=== PATIENT | female | born 1930 | race Hispanic/Latino ===

== ENCOUNTER 2018-04-18 20:39 | Inpatient (IN) | payer MEDICARE, BC ==
[2018-04-18 22:14] VITALS: BMI 30.4
[2018-04-18] MEDS ORDERED: oxyCODONE 10 mg Immediate Release Tab PO PRN (22:34)
--- NOTE | 2018-04-18 22:44 | CP.PCM.HP ---
History of Present Illness - History of Present Illness History of Present Illness: GENERAL SURGERY HISTORY AND PHYSICAL FOR DR. GARCIA 88yo F with PMHx of HTN, anemia, hypokalemia, COPD, hyperlipidemia, dimentia, arthritis, DVT/PE on Eliquis presents to [facility] as a transfer from [facility] for AKA with Dr. Garcia tomorrow. Pt has been wheel chair bound for several years and lives in a custodial. Most of history obtained from patient's daughter at bedside. Patient had a bilateral knee replacement in 2013. Per the daughter, the pt fell on her knees while getting a shower at the custodial and had to have several revisions of the knee replacements. (12/03/17, 12/08/17, attempt at closed reduction 02/01/18, open reduction TKA dislocation, revision TKA 02/09/18). On 04/04/18, she returned to [facility] ER with right knee wound dehiscence. On 04/06/18 she went back to the OR for wound dehiscence s/p revision of right TKR. A patellectomy was done with reconstruction of patella tendon. The wound was irrigated and debridement done. Wound was closed primarily and wound vac was applied. Pt was discharged back to custodial. On 04/14/18, she presented back to [facility] ED with right TKA wound recurrent dehiscence. Dr. Hernandez discussed with patient's daughter and son and recommended AKA due to concern that perfusion in lower extremity would not support flap coverage and multiple plastic surgery procedures. Family in agreement for AKA. Pt transferred to [facility] [place] for AKA. Previous blood cx: fungemia, pt on Fluconazole Previous wound cx: Klebsiella, pt on Vanco and Rocephin Per daughter, eliquis on hold since Tuesday or Tuesday. PMHx: HTN, anemia, hypokalemia, COPD, hyperlipidemia, dimentia, arthritis, DV T/PE on Eliquis Surgeries: hysterectomy, hernia repair by Dr. Franklin, bilateral knee replacement in 2013 Allergies: trazodone Present on Admission - Present on Admission Any Indicators Present on Admission: Yes History of DVT/PE: Yes History of Uncontrolled Diabetes: No Decubitus Ulcer Present: Yes Decubitus Ulcer Stage: I History Surgical Site Infection Following: Orthopedic Procedures Review of Systems - Review of Systems Systems not reviewed;Unavailable: Dementia Past Patient History - Infectious Disease Hx of Infectious Diseases: None - Tetanus Immunizations Tetanus Immunization: Unknown - Past Medical History & Family History Past Medical History?: Yes - Past Social History Smoking Status: Never Smoked - CARDIAC Hx Hypercholesterolemia: Yes Hx Hypertension: Yes - PULMONARY Hx Chronic Obstructive Pulmonary Disease (COPD): Yes Hx Pulmonary Embolism: Yes - NEUROLOGICAL Hx Dementia: Yes Hx Seizures: No - HEENT Hx HEENT Problems: Yes Hx Cataracts: Yes - RENAL Hx Chronic Kidney Disease: No - ENDOCRINE/METABOLIC Hx Endocrine Disorders: No - HEMATOLOGICAL/ONCOLOGICAL Hx Anemia: Yes Hx Human Immunodeficiency Virus (HIV): No - INTEGUMENTARY Hx Dermatological Problems: Yes (HX:Cellulitis of the lower extremities) - MUSCULOSKELETAL/RHEUMATOLOGICAL Hx Arthritis: Yes Hx Fractures: Yes - GASTROINTESTINAL Hx Gastrointestinal Disorders: Yes (GI bleed, herniorhapphy) Hx Gastroesophageal Reflux: Yes - GENITOURINARY/GYNECOLOGICAL Hx Sexually Transmitted Disorders: No - PSYCHIATRIC Hx Anxiety: Yes Hx Depression: Yes - ANESTHESIA Hx Anesthesia: Yes Hx Anesthesia Reactions: No Hx Malignant Hyperthermia: No Meds Allergies/Adverse Reactions: Allergies Allergy/AdvReac Type Severity Reaction Status Date / Time trazodone Allergy DIZZINESS Verified 04/14/18 20:23 Physical Exam - Constitutional Appears: Non-toxic, No Acute Distress, Chronically Ill - Head Exam Head Exam: ATRAUMATIC, NORMAL INSPECTION - Respiratory Exam Respiratory Exam: NORMAL BREATHING PATTERN. absent: Respiratory Distress - Cardiovascular Exam Cardiovascular Exam: +S1, +S2 - GI/Abdominal Exam GI & Abdominal Exam: Soft. absent: Firm, Guarding, Tenderness - Extremities Exam Additional comments: Right leg in knee immobilizer. Wound vac x2 connected via a Y Left knee with steri strips in place - Neurological Exam Neurological exam: Alert - Psychiatric Exam Psychiatric exam: Normal Affect, Normal Mood - Skin Skin Exam: Dry, Normal Color Results - Vital Signs Recent Vital Signs: Last Vital Signs Temp 98.2 F 04/18/18 20:45 Pulse 76 04/18/18 20:45 Resp 20 04/18/18 20:45 BP 181/104 H 04/18/18 20:45 Pulse Ox 96 04/18/18 20:45 Assessment & Plan - Assessment and Plan (Free Text) Assessment: 88yo F with PMHx of HTN, anemia, hypokalemia, COD, hyperlipidemia, dimentia, arthritis, DVT/PE on Eliquis with right TKA wound recurrent dehiscence. - Plan for OR tomorrow for right AKA - Type & cross 2 units - NPO past midnight - Eliquis has been held - Procedure explained to daughter (POA) in detail, including risks, benefits and alternatives, all questions were answered, written consent was obtained and in the chart - Continue IV abx as per ID (on Diflucan, Vanco, Rocephin per ID at [facility]) - Consult medicine for medical management - Discussed plan with Dr. Srini Fay PGY-4
[2018-04-18] MEDS ORDERED: Tiotropium 18 mcg Cap For Inhalation IH SCH (22:45)
[2018-04-18] MEDS ORDERED: Home Med 1 UNIT (Arformoterol [Brovana] 15 MCG) IH SCH (22:45)
[2018-04-19] MEDS: Lactated Ringer's 1,000 ML IV SCH ×2 (01:30→18:40)
--- NOTE | 2018-04-19 04:32 | CP.PCM.CON ---
<Idalmis Hernandez - Last Filed: 04/19/18 04:27> History of Present Illness - History of Present Illness History of Present Illness: Ms. Burkett is a 88 year old F PMH HTN, HLD, COPD, hx PE/DVT, chronic anemia, dementia, S/p Revision of b/l TKR in 12/2017 and dementia presents to [facility] for wound dehiscence. She is now at [facility] for AKA with Dr. Milligan for the poor healing wound. She was hospitalized for this issue twice for the same reason. Wound has not closed since TKR, wound vac was in place but stitches has been opening and the prosthesis can be visualized. Pt is from [facility]. Denies chest pain, dyspnea, n/v/d/c, fevers, chills. Patient is demented and believes it is the year 1981. PMD: Freda PMH: HTN, HLD, COPD, hx PE/DVT, chronic anemia, extensive psych hx, S/p Revision of b/l TKR in 12/2017 and chronic dementia All: Trazodone SurgHx: bilateral knee replacements, hernia, ORIF of left medial femoral condyle fracture (12/05/2017), S/p Revision of b/l TKR in 12/2017 FMHx: father-stroke; mother-breast cancer SHx: denies tobacco, Etoh or drugs, bed-bound POA: Daughter Princess Macedo [phone]. SON is also POA, however resides in [place] [phone]. Review of Systems - Review of Systems Systems not reviewed;Unavailable: Dementia, Altered Mental Status Past Patient History - Infectious Disease Hx of Infectious Diseases: None - Tetanus Immunizations Tetanus Immunization: Unknown - Past Medical History & Family History Past Medical History?: Yes Pertinent Family History: Father-stroke; mother-breast cancer - Past Social History Smoking Status: Never Smoked Alcohol: None Drugs: Denies - CARDIAC Hx Hypercholesterolemia: Yes Hx Hypertension: Yes - PULMONARY Hx Chronic Obstructive Pulmonary Disease (COPD): Yes Hx Pulmonary Embolism: Yes - NEUROLOGICAL Hx Dementia: Yes Hx Seizures: No - HEENT Hx HEENT Problems: Yes Hx Cataracts: Yes - RENAL Hx Chronic Kidney Disease: No - ENDOCRINE/METABOLIC Hx Endocrine Disorders: No - HEMATOLOGICAL/ONCOLOGICAL Hx Anemia: Yes Hx Human Immunodeficiency Virus (HIV): No - INTEGUMENTARY Hx Dermatological Problems: Yes (HX:Cellulitis of the lower extremities) - MUSCULOSKELETAL/RHEUMATOLOGICAL Hx Arthritis: Yes Hx Fractures: Yes - GASTROINTESTINAL Hx Gastrointestinal Disorders: Yes (GI bleed, herniorhapphy) Hx Gastroesophageal Reflux: Yes - GENITOURINARY/GYNECOLOGICAL Hx Sexually Transmitted Disorders: No - PSYCHIATRIC Hx Anxiety: Yes Hx Depression: Yes - ANESTHESIA Hx Anesthesia: Yes Hx Anesthesia Reactions: No Hx Malignant Hyperthermia: No Meds Allergies/Adverse Reactions: Allergies Allergy/AdvReac Type Severity Reaction Status Date / Time trazodone Allergy DIZZINESS Verified 04/14/18 20:23 - Medications Medications: Current Medications Acetaminophen (Tylenol 325mg Tab) 650 mg PO Q6 PRN PRN Reason: Pain, Mild (1-3) Budesonide (Pulmicort Respules) 0.5 mg IH RQD [facility] Calcium Carbonate (Oscal) 500 mg PO DAILY [facility] Carvedilol (Coreg) 3.125 mg PO BID [facility] Ceftriaxone Sodium (Rocephin) 2 gm IVPB DAILY [facility]; Protocol Docusate Sodium (Colace) 200 mg PO HS [facility] Last Admin: 04/18/18 23:55 Dose: 200 mg Ergocalciferol (Drisdol 50,000 Intl Units Cap) 1 cap PO QWK [facility] Ferrous Sulfate (Feosol) 325 mg PO BID [facility] Home Med (Arformoterol [Brovana]) 15 mcg IH [id number] [facility] Home Med (Fluconazole Iv 200mg/100 Ml Ns [Diflucan Iv 200 Mg/100 Ml Ns]) 200 mg IV DAILY [facility] Home Med (Vancomycin/0.9 % Sod Chloride [Vanco 1 Gram/250 Ml-0.9% Nacl]) 1 gm IV DAILY [facility] Lactated Ringer's (Lactated Ringer's) 1,000 mls @ 115 mls/hr IV .[id number] [facility] Last Admin: 04/19/18 01:30 Dose: 115 mls/hr Losartan Potassium (Cozaar) 100 mg PO DAILY [facility] Magnesium Oxide (Mag-Ox) 400 mg PO QPM [facility] Mirtazapine (Remeron) 15 mg PO HS [facility] Last Admin: 04/18/18 23:55 Dose: 15 mg Oxycodone HCl (Oxycodone Immediate Release Tab) 10 mg PO Q4 PRN PRN Reason: Pain, moderate (4-7) Pantoprazole Sodium (Protonix Ec Tab) 40 mg PO DAILY [facility] Potassium Chloride (K-Dur 20 Meq Er Tab) 20 meq PO DAILY [facility] Rosuvastatin Calcium (Crestor) 5 mg PO HS [facility] Tiotropium Mobridge (Spiriva) 18 mcg IH HS [facility] Physical Exam - Constitutional Appears: Non-toxic, No Acute Distress, Confused - Head Exam Head Exam: ATRAUMATIC, NORMOCEPHALIC - Eye Exam Additional comments: patient uncooperative - ENT Exam ENT Exam: Mucous Membranes Moist - Respiratory Exam Respiratory Exam: NORMAL BREATHING PATTERN Additional comments: patient uncooperative - Cardiovascular Exam Cardiovascular Exam: REGULAR RHYTHM, +S1, +S2 - GI/Abdominal Exam GI & Abdominal Exam: Normal Bowel Sounds, Soft. absent: Distended, Firm, Rebound, Tenderness - Extremities Exam Extremities exam: Negative for: pedal edema Additional comments: peripheral pulses Doppler-able (DP, radial) 2 wound vac coming from dehisced R knee. [place] in place, wound red and erythematous R leg immobilized in immobilizer bilateral pressure ulcer boots SCDs L knee braced, Steri strip in place - Neurological Exam Neurological exam: Alert Additional comments: patient uncooperative - Skin Skin Exam: Normal Color, Warm Results - Vital Signs Recent Vital Signs: Last Vital Signs Temp 98.3 F 04/18/18 23:20 Pulse 100 H 04/18/18 23:20 Resp 20 04/18/18 23:20 BP 159/83 H 04/18/18 23:20 Pulse Ox 96 04/18/18 23:20 Assessment & Plan - Assessment and Plan (Free Text) Assessment: 88yoF PMH HTN, HLD, COPD, PE/DVT, s/p bilateral TKR with multiple revisions admitted for R AKA d/t wound dehiscence consulted for medical management of her chronic issues. Plan: Patient was transferred from [place]. Seen by ID and Cardio there. She is clear for Surgery per discharge team. R knee wound dehiscence s/p TKR revision - NPO @ [place] for AKA in AM with Dr. Milligan - all surgical and pain management per surgery - Tylenol and Oxycodone - Wound Cx at [place] positive for Klebsiella Pneumo, Proteus Mirabilis - Blood Cx at [place] positive for yeast species, Loida Glabrata - ID at [place] consulted: Dr. Manocchio - started on Vanc, Rocephin, Diflucan. - will continue abx and antifungal regimen - Rocephin 2g IVPB daily - Vanc 1g IV daily - Fluconazole 400mg IV daily - will hold off on consulting ID at [facility] until the point if patient decompensates post-op Chronic Iron Def Anemia - Feosol 325mg po bid - monitor H/H with AM labs - Transfuse prn Hypokalemia - cont KCl 20 mEq po daily - f/u Mg AM labs - monitor with AM labs - replete prn Hypertension - home Coreg 3.125mg po bid - home Cozaar 100mg po daily - monitor vitals COPD - home Pulmicort 0.5mg IH daily - home Spiriva 18mgg IH HS Hyperlipidemia - home Crestor 5mg po HS Osteoporosis - home OsCal 500mg po daily - Ergocalciferol 1 cap po qweekly Hx DVT/PE - home Eliquis held for procedure Constipation - cont Docusate 200mg po HS - cont Mg Oxide 400mg po qPM PPx - DVT: Heparin held for procedure, SCDs - GI: Protonix 40mg po daily - Diet: NPO for OR - Mirtazipine 15mg po HS - LR@115 d/w Dr. Judy Hernandez PGY-1 - Date & Time Date: 04/18/18 Time: 23:45 <Veto Kim - Last Filed: 04/19/18 06:26> Meds - Medications Medications: Current Medications Acetaminophen (Tylenol 325mg Tab) 650 mg PO Q6 PRN PRN Reason: Pain, Mild (1-3) Budesonide (Pulmicort Respules) 0.5 mg IH RQD [facility] Calcium Carbonate (Oscal) 500 mg PO DAILY [facility] Carvedilol (Coreg) 3.125 mg PO BID [facility] Ceftriaxone Sodium (Rocephin) 2 gm IVPB DAILY [facility]; Protocol Docusate Sodium (Colace) 200 mg PO HS [facility] Last Admin: 04/18/18 23:55 Dose: 200 mg Ergocalciferol (Drisdol 50,000 Intl Units Cap) 1 cap PO QWK [facility] Ferrous Sulfate (Feosol) 325 mg PO BID [facility] Home Med (Arformoterol [Brovana]) 15 mcg IH [id number] [facility] Home Med (Fluconazole Iv 200mg/100 Ml Ns [Diflucan Iv 200 Mg/100 Ml Ns]) 200 mg IV DAILY [facility] Home Med (Vancomycin/0.9 % Sod Chloride [Vanco 1 Gram/250 Ml-0.9% Nacl]) 1 gm IV DAILY [facility] Lactated Ringer's (Lactated Ringer's) 1,000 mls @ 115 mls/hr IV .[id number] [facility] Last Admin: 04/19/18 01:30 Dose: 115 mls/hr Losartan Potassium (Cozaar) 100 mg PO DAILY [facility] Magnesium Oxide (Mag-Ox) 400 mg PO QPM [facility] Mirtazapine (Remeron) 15 mg PO HS [facility] Last Admin: 04/18/18 23:55 Dose: 15 mg Oxycodone HCl (Oxycodone Immediate Release Tab) 10 mg PO Q4 PRN PRN Reason: Pain, moderate (4-7) Pantoprazole Sodium (Protonix Ec Tab) 40 mg PO DAILY [facility] Potassium Chloride (K-Dur 20 Meq Er Tab) 20 meq PO DAILY [facility] Rosuvastatin Calcium (Crestor) 5 mg PO HS [facility] Tiotropium Mobridge (Spiriva) 18 mcg IH HS [facility] Results - Vital Signs Recent Vital Signs: Last Vital Signs Temp 98.3 F 04/18/18 23:20 Pulse 100 H 04/18/18 23:20 Resp 20 04/18/18 23:20 BP 159/83 H 04/18/18 23:20 Pulse Ox 96 04/18/18 23:20 Assessment & Plan - Date & Time Date: 04/19/18 (I have seen and examined the patient. I agree with the findings and plan of care as documented by Dr. Hernandez. Patient with right knee wound dehiscence. On Rocephin, Vanco, and Fluconazole. Dr. Milligan planning for AKA. History of DVT. Elliquis on hold. History of hypertension. Continue home meds. Monitor for acute changes.) Time: 06:24 Attending/Attestation - Attestation I have personally seen and examined this patient.: Yes I have fully participated in the care of the patient.: Yes I have reviewed all pertinent clinical information: Yes
[2018-04-19 06:35] LABS: BASO # 0.1 K/uL (0.0-0.2); BASO % 1.3 % (0.0-2.0); EOS # 0.1 K/uL (0.0-0.7); EOS % 2.4 % (0.0-4.0); HEMOGLOBIN 10.2 g/dL (11.0-16.0); LYMPH % 17.3 % (20.0-40.0); MEAN CELL VOLUME 86.7 fL (81.0-99.0); MEAN CORPUSCULAR HEMOGLOBIN 28.8 pg (27.0-31.0); MEAN CORPUSCULAR HGB CONC 33.2 g/dL (33.0-37.0); MEAN PLATELET VOLUME 7.9 fL (7.2-11.7); MONO # 0.6 K/uL (0.0-0.8); MONO % 10.5 % (0.0-10.0); NEUT % 68.5 % (50.0-75.0); NRBC % 0.1 % (0.0-2.0); RBC 3.56 Mil/uL (3.80-5.20); RED CELL DISTRIBUTION WIDTH 16.1 % (11.5-14.5); WHITE BLOOD COUNT 5.9 K/uL (4.8-10.8)
[2018-04-19 06:41] LABS: INR 1.3; PROTHROMBIN TIME 13.9 SECONDS (9.7-12.2)
[2018-04-19 06:59] LABS: ALB/GLOB RATIO 0.8 (1.0-2.1); ALBUMIN 2.7 g/dL (3.5-5.0); ALT/SGPT 22 U/L (9-52); AST/SGOT 22 U/L (14-36); BLOOD UREA NITROGEN 8 mg/dL (7-17); CALCIUM 8.6 mg/dl (8.6-10.4); GFR NON-AFRICAN AMERICAN > 60
[2018-04-19] MEDS: Budesonide 0.5 mg/2 ml Inhal Susp UD IH SCH (08:35)
[2018-04-19] MEDS ORDERED: cefTRIAXone 2 GM IN NS 2 GM/100 ML BAG IVPB SCH (09:00)
[2018-04-19] MEDS: Potassium Chloride 20 mEq ER Tab PO SCH (09:10)
[2018-04-19] MEDS: Pantoprazole 40 mg EC Tab PO SCH (09:10)
[2018-04-19] MEDS ORDERED: Propofol 10 mg/ml Inj (20 ML) ONE (09:11)
[2018-04-19] MEDS: cefTRIAXone 2 GM in Sodium Chloride 0.9% 100 ML IVPB SCH (09:20)
[2018-04-19] MEDS ORDERED: Fluconazole IV 400mg/200ml NS 200 ML IVPB SCH (10:00)
[2018-04-19] MEDS ORDERED: cefTRIAXone (Rocephin) 2 gm Inj IVPB SCH (10:00)
[2018-04-19] MEDS ORDERED: SOD CHLORIDE IV SCH (10:00)
[2018-04-19] MEDS ORDERED: VANCOMYCIN IV SCH (10:00)
--- NOTE | 2018-04-19 10:23 | PCM.SURG1 ---
Surgeon's Initial Post Op Note - Surgeon's Notes Surgeon: [email or web address] Supervisor Photostat: 0 Type of Anesthesia: General LMA Anesthesia Administered By: fabby Pre-Operative Diagnosis: exposed knee prosthesis. wound dehisence Operative Findings: standard right aka. femoral artery patent Post-Operative Diagnosis: " Operation Performed: right above knee amputation Specimen/Specimens Removed: leg Estimated Blood Loss: EBL {In ML}: 400 Blood Products Given: N/A Drains Used: No Drains Post-Op Condition: Good Date of Surgery/Procedure: 04/19/18 Time of Surgery/Procedure: 10:23
[2018-04-19] MEDS ORDERED: HYDROmorphone 1 mg/ml ISec IVP PRN (10:26)
[2018-04-19] MEDS ORDERED: HYDROmorphone 0.5 mg/0.5 ml ISec IVP PRN (10:36)
[2018-04-19] MEDS: Vancomycin 1 gm/NS 200 ml 1 GM/200 ML BAG IVPB SCH (10:48)
--- NOTE | 2018-04-19 14:12 | CP.PCM.PN ---
<Tushar Gold - Last Filed: 04/19/18 14:06> Subjective - Date & Time of Evaluation Date of Evaluation: 04/19/18 Time of Evaluation: 14:06 - Subjective Subjective: PGY-1 Medicine Progress Note for Dr. Morillo's service Patient seen and examined at bedside. Patient reports pain in lower extremity likely 2/2 to above knee amputation. Patient denies fevers, chills, chest pain, sob, n/v, constipation or diarrhea, and dysuria. Objective - Vital Signs/Intake and Output Vital Signs (last 24 hours): Temp Pulse Resp BP Pulse Ox 97.2 F L 66 16 167/60 H 100 04/19/18 11:45 04/19/18 11:45 04/19/18 11:45 04/19/18 11:45 04/19/18 11:45 Intake and Output: 04/19/18 04/19/18 06:59 18:59 Intake Total 632 900 Output Total 500 Balance 132 900 - Medications Medications: Current Medications Acetaminophen (Tylenol 325mg Tab) 650 mg PO Q6 PRN PRN Reason: Pain, Mild (1-3) Budesonide (Pulmicort Respules) 0.5 mg IH RQD [facility] Last Admin: 04/19/18 08:35 Dose: 0.5 mg Calcium Carbonate (Oscal) 500 mg PO DAILY [facility] Last Admin: 04/19/18 09:10 Dose: Not Given Carvedilol (Coreg) 3.125 mg PO BID [facility] Last Admin: 04/19/18 09:10 Dose: Not Given Docusate Sodium (Colace) 200 mg PO HS [facility] Last Admin: 04/18/18 23:55 Dose: 200 mg Ergocalciferol (Drisdol 50,000 Intl Units Cap) 1 cap PO QWK [facility] Ferrous Sulfate (Feosol) 325 mg PO BID [facility] Last Admin: 04/19/18 09:10 Dose: Not Given Fluconazole (Diflucan) 200 mg PO DAILY [facility] Last Admin: 04/19/18 12:07 Dose: Not Given Heparin Sodium (Porcine) (Heparin) 5,000 units SC Q8 [facility] Last Admin: 04/19/18 13:46 Dose: 5,000 units Home Med (Arformoterol [Brovana]) 15 mcg IH [id number] [facility] Hydromorphone HCl (Dilaudid) 1 mg IVP Q4H PRN PRN Reason: Pain, moderate (4-7) Lactated Ringer's (Lactated Ringer's) 1,000 mls @ 115 mls/hr IV .[id number] [facility] Last Admin: 04/19/18 01:30 Dose: 115 mls/hr Vancomycin/Sodium Chloride (Vancomycin 1 Gm/Ns 200 Ml) 1 gm in 200 mls @ 133 mls/hr IVPB DAILY@1100 [facility] Stop: 04/24/18 11:01 Last Admin: 04/19/18 10:48 Dose: 200 mls Ceftriaxone Sodium 2 gm/ (Sodium Chloride) 100 mls @ 100 mls/hr IVPB DAILY@0900 [facility] Last Admin: 04/19/18 09:20 Dose: 100 mls Losartan Potassium (Cozaar) 100 mg PO DAILY [facility] Last Admin: 04/19/18 09:10 Dose: Not Given Magnesium Oxide (Mag-Ox) 400 mg PO QPM [facility] Mirtazapine (Remeron) 15 mg PO [facility] Last Admin: 04/18/18 23:55 Dose: 15 mg Oxycodone HCl (Oxycodone Immediate Release Tab) 10 mg PO Q4 PRN PRN Reason: Pain, moderate (4-7) Pantoprazole Sodium (Protonix Ec Tab) 40 mg PO DAILY [facility] Last Admin: 04/19/18 09:10 Dose: Not Given Potassium Chloride (K-Dur 20 Meq Er Tab) 20 meq PO DAILY [facility] Last Admin: 04/19/18 09:10 Dose: Not Given Rosuvastatin Calcium (Crestor) 5 mg PO [facility] Tiotropium Triangle (Spiriva) 18 mcg IH [facility] - Labs Labs: 04/19/18 06:23 04/19/18 06:23 PT 13.9 SECONDS (9.7-12.2) H 04/19/18 06:23 INR 1.3 04/19/18 06:23 APTT 30 SECONDS (21-34) 04/19/18 06:23 - Additional Findings Additional findings: - Constitutional Appears: Non-toxic, No Acute Distress, Confused - Head Exam Head Exam: ATRAUMATIC, NORMOCEPHALIC - Eye Exam Additional comments: patient uncooperative - ENT Exam ENT Exam: Mucous Membranes Moist - Respiratory Exam Respiratory Exam: NORMAL BREATHING PATTERN Additional comments: patient uncooperative - Cardiovascular Exam Cardiovascular Exam: REGULAR RHYTHM, +S1, +S2 - GI/Abdominal Exam GI & Abdominal Exam: Normal Bowel Sounds, Soft. 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 Dr. Milligan is primary and has plans for AKA. Patient had AKA procedure on 04/19/18 and as per surgery patient can be restarted on Heparin. Plan: Right knee wound dehiscence s/p multiple TKR revisions Dr. Milligan- Vascular Surgery- AKA on 04/19/2018; Patient on Heparin 5000 units; Dilaudid 1mg PRN and Oxycodone ER 10mg po q4h prn Wound Cx at [place] positive for Klebsiella Pneumo, Proteus Mirabilis Blood Cx at [place] positive for yeast species, Loida Glabrata ID at [place] consulted: Dr. Hector - started on Vanc, Rocephin, Diflucan. Rocephin 2g IVPB daily; Vanc 1g IV daily; Fluconazole 400mg IV daily HTN Coreg 3.125mg po bid Cozaar 100mg po daily Hyperlipidemia Crestor 5mg po HS Chronic Iron Def Anemia Feosol 325mg po bid Repeat CBC in AM Transfuse prn COPD Pulmicort 0.5mg IH daily Spiriva 18mgg IH HS Osteoporosis OsCal 500mg po daily Ergocalciferol 1 cap po qweekly Hx DVT/PE Heparin 5000 units sc q8h Constipation Docusate 200mg po HS Mg Oxide 400mg po qPM PPx DVT: Heparin 5000 units sc q8h, SCDs GI: Protonix 40mg po daily LRs @ 115mls/hr Tushar Gold PGY-1 Medical Management discussed with Dr. Morillo <Dion Morillo H - Last Filed: 04/19/18 15:23> Objective - Vital Signs/Intake and Output Vital Signs (last 24 hours): Temp Pulse Resp BP Pulse Ox 97.2 F L 66 16 167/60 H 100 04/19/18 11:45 04/19/18 11:45 04/19/18 11:45 04/19/18 11:45 04/19/18 11:45 Intake and Output: 04/19/18 04/19/18 06:59 18:59 Intake Total 632 900 Output Total 500 Balance 132 900 - Medications Medications: Current Medications Acetaminophen (Tylenol 325mg Tab) 650 mg PO Q6 PRN PRN Reason: Pain, Mild (1-3) Budesonide (Pulmicort Respules) 0.5 mg IH RQD [facility] Last Admin: 04/19/18 08:35 Dose: 0.5 mg Calcium Carbonate (Oscal) 500 mg PO DAILY [facility] Last Admin: 04/19/18 09:10 Dose: Not Given Carvedilol (Coreg) 3.125 mg PO BID [facility] Last Admin: 04/19/18 09:10 Dose: Not Given Docusate Sodium (Colace) 200 mg PO HS [facility] Last Admin: 04/18/18 23:55 Dose: 200 mg Ergocalciferol (Drisdol 50,000 Intl Units Cap) 1 cap PO QWK [facility] Ferrous Sulfate (Feosol) 325 mg PO BID [facility] Last Admin: 04/19/18 09:10 Dose: Not Given Fluconazole (Diflucan) 200 mg PO DAILY [facility] Last Admin: 04/19/18 12:07 Dose: Not Given Heparin Sodium (Porcine) (Heparin) 5,000 units SC Q8 [facility] Last Admin: 04/19/18 13:46 Dose: 5,000 units Home Med (Arformoterol [Brovana]) 15 mcg IH [id number] [facility] Hydromorphone HCl (Dilaudid) 1 mg IVP Q4H PRN PRN Reason: Pain, moderate (4-7) Lactated Ringer's (Lactated Ringer's) 1,000 mls @ 115 mls/hr IV .[id number] [facility] Last Admin: 04/19/18 01:30 Dose: 115 mls/hr Vancomycin/Sodium Chloride (Vancomycin 1 Gm/Ns 200 Ml) 1 gm in 200 mls @ 133 mls/hr IVPB DAILY@1100 [facility] Stop: 04/24/18 11:01 Last Admin: 04/19/18 10:48 Dose: 200 mls Ceftriaxone Sodium 2 gm/ (Sodium Chloride) 100 mls @ 100 mls/hr IVPB DAILY@0900 [facility] Last Admin: 04/19/18 09:20 Dose: 100 mls Losartan Potassium (Cozaar) 100 mg PO DAILY [facility] Last Admin: 04/19/18 09:10 Dose: Not Given Magnesium Oxide (Mag-Ox) 400 mg PO QPM [facility] Mirtazapine (Remeron) 15 mg PO HS [facility] Last Admin: 04/18/18 23:55 Dose: 15 mg Oxycodone HCl (Oxycodone Immediate Release Tab) 10 mg PO Q4 PRN PRN Reason: Pain, moderate (4-7) Pantoprazole Sodium (Protonix Ec Tab) 40 mg PO DAILY [facility] Last Admin: 04/19/18 09:10 Dose: Not Given Potassium Chloride (K-Dur 20 Meq Er Tab) 20 meq PO DAILY [facility] Last Admin: 04/19/18 09:10 Dose: Not Given Rosuvastatin Calcium (Crestor) 5 mg PO HS [facility] Tiotropium Triangle (Spiriva) 18 mcg IH HS [facility] - Labs Labs: 04/19/18 06:23 04/19/18 06:23 PT 13.9 SECONDS (9.7-12.2) H 04/19/18 06:23 INR 1.3 04/19/18 06:23 APTT 30 SECONDS (21-34) 04/19/18 06:23 Attending/Attestation - Attestation I have personally seen and examined this patient.: Yes I have fully participated in the care of the patient.: Yes I have reviewed all pertinent clinical information, including history, physical exam and plan: Yes Notes (Text): 04/19/18 15:16 Medical attending: Patient was seen and examined by me. Agree with the above note by the resident Patient was seen this afternoon after she returned from the PACU - she was still drowsy from anesthesia however was awake, alert, and responding to questions - she has a slow affect and AAO x 1. Per family this is her baseline The patient was seen with family members present at bedside and we discussed as well. The patient has been through a lot problems with the bilateral knees with a lot of difficulty with wound healing as well as multiple surgeries to attempt to address the knees. Unfortunately things have not improved and so she was transferred from [facility] to [facility] for the right AKA. We will monitor her CBC - from what I have been told the patient had blood given before the procedure while still in [place]. 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 Dion Morillo
[2018-04-19] MEDS: Magnesium Oxide 400 mg Tab UD PO SCH (18:41)
--- NOTE | 2018-04-19 20:42 | OP ---
PROCEDURE DATE: 04/19/2018 PREOPERATIVE DIAGNOSIS: Open exposed right knee prosthesis wound disruption. POSTOPERATIVE DIAGNOSIS: Open exposed right knee prosthesis wound disruption. PROCEDURE CARRIED OUT: Right above-knee amputation. SURGEON: Owen Milligan Jr., MD WATER/WASTEWATER PROJECT ENGINEER: CORINNA Orellana ANESTHESIOLOGIST: Paul Garza MD INDICATIONS: The patient is an elderly woman with history of knee replacements, who presents with a huge open wound and exposure of the knee prosthesis. Discussed with Orthopedics as this procedure had been done elsewhere. The patient is nonambulatory and after discussion with the son, who is a physician, and the family, an amputation was recommended. OPERATIVE FINDINGS: There was excellent vascularity as the femoral artery was patent . DESCRIPTION OF PROCEDURE: The patient was given general anesthesia. Intravenous antibiotics were administered. Standard right above-knee amputation was carried out. After cutting the bone at a higher level, we then approximated the flaps, closed the skin with sutures to the skin, all heavy vessels were oversewn. The rest were controlled with the use of cautery. A non-compressive dressing was applied at the end. Blood loss for the procedure was 400 mL. Operation carried out is right above-knee amputation. Owen Milligan Jr., MD MTDD
[2018-04-20] MEDS: Lactated Ringer's 1,000 ML IV SCH ×2 (05:22→12:35)
[2018-04-20 06:54] LABS: BASO # 0.1 K/uL (0.0-0.2); EOS % 0.3 % (0.0-4.0); HEMOGLOBIN 9.4 g/dL (11.0-16.0); LYMPH # 1.1 K/uL (1.0-4.3); MEAN CELL VOLUME 87.8 fL (81.0-99.0); MEAN CORPUSCULAR HEMOGLOBIN 29.7 pg (27.0-31.0); MEAN CORPUSCULAR HGB CONC 33.8 g/dL (33.0-37.0); MEAN PLATELET VOLUME 8.5 fL (7.2-11.7); MONO # 1.2 K/uL (0.0-0.8); NEUT # 9.9 K/uL (1.8-7.0); NEUT % 79.7 % (50.0-75.0); PLATELET COUNT 234 K/uL (130-400); RBC 3.16 Mil/uL (3.80-5.20); RED CELL DISTRIBUTION WIDTH 16.1 % (11.5-14.5); WHITE BLOOD COUNT 12.4 K/uL (4.8-10.8)
[2018-04-20 07:48] LABS: ALB/GLOB RATIO 0.7 (1.0-2.1); ALBUMIN 2.4 g/dL (3.5-5.0); ALT/SGPT 25 U/L (9-52); AST/SGOT 29 U/L (14-36); BLOOD UREA NITROGEN 9 mg/dL (7-17); CALCIUM 8.4 mg/dl (8.6-10.4); GFR NON-AFRICAN AMERICAN > 60
[2018-04-20] MEDS: Budesonide 0.5 mg/2 ml Inhal Susp UD IH SCH (08:15)
[2018-04-20 09:06] LABS: LYMPHOCYTE 12 % (20-40); MONOCYTE 6 % (0-10); NEUTROPHIL 82 % (50-75); PLATELET ESTIMATE NORMAL (NORMAL); TOTAL CELLS COUNTED 100
[2018-04-20 09:07] LABS: ANISOCYTOSIS SLIGHT; HYPOCHROMIC SLIGHT; OVALOCYTES SLIGHT; POIKILOCYTOSIS SLIGHT; TEARDROP CELLS SLIGHT
[2018-04-20] MEDS: cefTRIAXone 2 GM in Sodium Chloride 0.9% 100 ML IVPB SCH (09:30)
[2018-04-20] MEDS: Vancomycin 1 gm/NS 200 ml 1 GM/200 ML BAG IVPB SCH (10:30)
[2018-04-20] MEDS: Potassium Chloride 20 mEq ER Tab PO SCH (10:50)
[2018-04-20] MEDS: Pantoprazole 40 mg EC Tab PO SCH (10:50)
--- NOTE | 2018-04-20 11:21 | CP.PCM.PN ---
<AsifTushar - Last Filed: 04/20/18 14:50> Subjective - Date & Time of Evaluation Date of Evaluation: 04/20/18 Time of Evaluation: 11:18 - Subjective Subjective: PGY-1 Medicine Progress Note for Dr. Morillo's service Patient seen and examined at bedside. 12 point ROS limited due to patient baseline dementia. Objective - Vital Signs/Intake and Output Vital Signs (last 24 hours): Temp Pulse Resp BP Pulse Ox 98.9 F 97 H 18 132/63 94 L 04/20/18 07:35 04/20/18 07:35 04/20/18 07:35 04/20/18 07:35 04/20/18 07:35 - Medications Medications: Current Medications Acetaminophen (Tylenol 325mg Tab) 650 mg PO Q6 PRN PRN Reason: Pain, Mild (1-3) Last Admin: 04/19/18 18:42 Dose: 650 mg Budesonide (Pulmicort Respules) 0.5 mg IH RQD [facility] Last Admin: 04/20/18 08:15 Dose: 0.5 mg Calcium Carbonate (Oscal) 500 mg PO DAILY [facility] Last Admin: 04/20/18 10:49 Dose: 500 mg Carvedilol (Coreg) 3.125 mg PO BID [facility] Last Admin: 04/20/18 10:49 Dose: 3.125 mg Docusate Sodium (Colace) 200 mg PO HS [facility] Last Admin: 04/19/18 21:40 Dose: 200 mg Ergocalciferol (Drisdol 50,000 Intl Units Cap) 1 cap PO QWK [facility] Ferrous Sulfate (Feosol) 325 mg PO BID [facility] Last Admin: 04/20/18 10:50 Dose: 325 mg Fluconazole (Diflucan) 200 mg PO DAILY [facility] Last Admin: 04/20/18 10:49 Dose: 200 mg Heparin Sodium (Porcine) (Heparin) 5,000 units SC Q8 [facility] Last Admin: 04/19/18 21:40 Dose: 5,000 units Hydromorphone HCl (Dilaudid) 1 mg IVP Q4H PRN PRN Reason: Pain, moderate (4-7) Vancomycin/Sodium Chloride (Vancomycin 1 Gm/Ns 200 Ml) 1 gm in 200 mls @ 133 mls/hr IVPB DAILY@1100 [facility] Stop: 04/24/18 11:01 Last Admin: 04/20/18 10:30 Dose: 133 mls/hr Ceftriaxone Sodium 2 gm/ (Sodium Chloride) 100 mls @ 100 mls/hr IVPB DAILY@0900 [facility] Last Admin: 04/20/18 09:30 Dose: 100 mls/hr Lactated Ringer's (Lactated Ringer's) 1,000 mls @ 75 mls/hr IV .[id number] [facility] Last Admin: 04/20/18 05:22 Dose: 75 mls/hr Losartan Potassium (Cozaar) 100 mg PO DAILY [facility] Last Admin: 04/20/18 10:50 Dose: 100 mg Magnesium Oxide (Mag-Ox) 400 mg PO QPM [facility] Last Admin: 04/19/18 18:41 Dose: 400 mg Mirtazapine (Remeron) 15 mg PO HS [facility] Last Admin: 04/19/18 21:39 Dose: 15 mg Oxycodone HCl (Oxycodone Immediate Release Tab) 10 mg PO Q4 PRN PRN Reason: Pain, moderate (4-7) Last Admin: 04/19/18 21:38 Dose: 10 mg Pantoprazole Sodium (Protonix Ec Tab) 40 mg PO DAILY [facility] Last Admin: 04/20/18 10:50 Dose: 40 mg Potassium Chloride (K-Dur 20 Meq Er Tab) 20 meq PO DAILY [facility] Last Admin: 04/20/18 10:50 Dose: 20 meq Rosuvastatin Calcium (Crestor) 5 mg PO HS [facility] Last Admin: 04/19/18 21:39 Dose: 5 mg Tiotropium Coalgate (Spiriva) 18 mcg IH [facility] - Labs Labs: 04/20/18 06:44 04/20/18 06:44 PT 13.9 SECONDS (9.7-12.2) H 04/19/18 06:23 INR 1.3 04/19/18 06:23 APTT 30 SECONDS (21-34) 04/19/18 06:23 - Additional Findings Additional findings: - Constitutional Appears: Non-toxic, No Acute Distress, Confused - Head Exam Head Exam: ATRAUMATIC, NORMOCEPHALIC - ENT Exam ENT Exam: Mucous Membranes Moist - Respiratory Exam Respiratory Exam: NORMAL BREATHING PATTERN Additional comments: patient uncooperative - Cardiovascular Exam Cardiovascular Exam: REGULAR RHYTHM, +S1, +S2 - GI/Abdominal Exam GI & Abdominal Exam: Normal Bowel Sounds, Soft. 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 Dr. Milligan is primary and has plans for AKA. Patient had AKA procedure on 04/19/18 and as per surgery patient can be restarted on Heparin. Plan: Right knee wound dehiscence s/p multiple TKR revisions Dr. Milligan- Vascular Surgery- AKA on 04/19/2018; Patient on Heparin 5000 units; Dilaudid 1mg PRN and Oxycodone ER 10mg po q4h prn Wound Cx at [place] positive for Klebsiella Pneumo, Proteus Mirabilis Blood Cx at [place] positive for yeast species, Loida Glabrata ID at [place] consulted: Dr. Hector - started on Vanc, Rocephin, Diflucan. Rocephin 2g IVPB daily; Vanc 1g IV daily; Fluconazole 400mg IV daily HTN Coreg 3.125mg po bid Cozaar 100mg po daily Hyperlipidemia Crestor 5mg po HS Chronic Iron Def Anemia Feosol 325mg po bid Repeat CBC in AM Transfuse prn COPD Pulmicort 0.5mg IH daily Spiriva 18mgg IH HS Osteoporosis OsCal 500mg po daily Ergocalciferol 1 cap po qweekly Hx DVT/PE Heparin 5000 units sc q8h; Eliquis to be started in AM (2.5mg po daily) Constipation Docusate 200mg po HS Mg Oxide 400mg po qPM PPx DVT: Heparin 5000 units sc q8h, SCDs GI: Protonix 40mg po daily Disposition: Discharge pending surgery team Tushar Gold PGY-1 Medical Management discussed with Dr. Morillo <Dion Morillo - Last Filed: 04/20/18 19:00> Objective - Vital Signs/Intake and Output Vital Signs (last 24 hours): Temp Pulse Resp BP Pulse Ox 99 F 87 20 145/78 93 L 04/20/18 15:24 04/20/18 15:24 04/20/18 15:24 04/20/18 15:24 04/20/18 15:24 Intake and Output: 04/20/18 04/20/18 06:59 18:59 Intake Total 835 Output Total 550 Balance 285 - Medications Medications: Current Medications Acetaminophen (Tylenol 325mg Tab) 650 mg PO Q6 PRN PRN Reason: Pain, Mild (1-3) Last Admin: 04/19/18 18:42 Dose: 650 mg Apixaban (Eliquis) 2.5 mg PO BID [facility] Last Admin: 04/20/18 18:21 Dose: 2.5 mg Budesonide (Pulmicort Respules) 0.5 mg IH RQD [facility] Last Admin: 04/20/18 08:15 Dose: 0.5 mg Calcium Carbonate (Oscal) 500 mg PO DAILY [facility] Last Admin: 04/20/18 10:49 Dose: 500 mg Carvedilol (Coreg) 3.125 mg PO BID [facility] Last Admin: 04/20/18 18:22 Dose: 3.125 mg Docusate Sodium (Colace) 200 mg PO HS [facility] Last Admin: 04/19/18 21:40 Dose: 200 mg Ergocalciferol (Drisdol 50,000 Intl Units Cap) 1 cap PO QWK [facility] Ferrous Sulfate (Feosol) 325 mg PO BID [facility] Last Admin: 04/20/18 18:22 Dose: 325 mg Fluconazole (Diflucan) 200 mg PO DAILY [facility] Last Admin: 04/20/18 10:49 Dose: 200 mg Hydromorphone HCl (Dilaudid) 1 mg IVP Q4H PRN PRN Reason: Pain, moderate (4-7) Vancomycin/Sodium Chloride (Vancomycin 1 Gm/Ns 200 Ml) 1 gm in 200 mls @ 133 mls/hr IVPB DAILY@1100 [facility] Stop: 04/24/18 11:01 Last Admin: 04/20/18 10:30 Dose: 133 mls/hr Ceftriaxone Sodium 2 gm/ (Sodium Chloride) 100 mls @ 100 mls/hr IVPB DAILY@0900 [facility] Last Admin: 11/29/18 09:30 Dose: 100 mls/hr Lactated Ringer's (Lactated Ringer's) 1,000 mls @ 75 mls/hr IV .[id number] [facility] Last Admin: 04/20/18 12:35 Dose: Not Given Losartan Potassium (Cozaar) 100 mg PO DAILY [facility] Last Admin: 04/20/18 10:50 Dose: 100 mg Magnesium Oxide (Mag-Ox) 400 mg PO QPM [facility] Last Admin: 04/20/18 18:22 Dose: 400 mg Mirtazapine (Remeron) 15 mg PO HS [facility] Last Admin: 04/19/18 21:39 Dose: 15 mg Oxycodone HCl (Oxycodone Immediate Release Tab) 10 mg PO Q4 PRN PRN Reason: Pain, moderate (4-7) Last Admin: 04/19/18 21:38 Dose: 10 mg Pantoprazole Sodium (Protonix Ec Tab) 40 mg PO DAILY [facility] Last Admin: 04/20/18 10:50 Dose: 40 mg Potassium Chloride (K-Dur 20 Meq Er Tab) 20 meq PO DAILY [facility] Last Admin: 04/20/18 10:50 Dose: 20 meq Rosuvastatin Calcium (Crestor) 5 mg PO HS [facility] Last Admin: 04/19/18 21:39 Dose: 5 mg Tiotropium Coalgate (Spiriva) 18 mcg IH [facility] - Labs Labs: 04/20/18 06:44 04/20/18 06:44 PT 13.9 SECONDS (9.7-12.2) H 04/19/18 06:23 INR 1.3 04/19/18 06:23 APTT 30 SECONDS (21-34) 04/19/18 06:23 Attending/Attestation - Attestation I have personally seen and examined this patient.: Yes I have fully participated in the care of the patient.: Yes I have reviewed all pertinent clinical information, including history, physical exam and plan: Yes Notes (Text): 04/20/18 18:58 Medical Consult: Patient was seen and examined by me. Reviewed the above note by the resident and agree with the above Patient was not in any acute distress when we came and saw her - as mentioned previously she is AAO x 1 - and she did not remember who I was this morning. Hgb is stable for now, and she is been placed back on the oral anticogulation. Pain was also controlled for the time being she said Dion Morillo
--- NOTE | 2018-04-20 14:01 | CP.PCM.PN ---
Subjective - Date & Time of Evaluation Date of Evaluation: 04/20/18 Time of Evaluation: 07:00 - Subjective Subjective: GENERAL SURGERY PROGRESS NOTE FOR DR. GARCIA Patient seen and examined at bedside. Pt denies pain. ROS limited due to dementia. Objective - Vital Signs/Intake and Output Vital Signs (last 24 hours): Temp Pulse Resp BP Pulse Ox 98.9 F 97 H 18 132/63 94 L 04/20/18 07:35 04/20/18 07:35 04/20/18 07:35 04/20/18 07:35 04/20/18 07:35 - Medications Medications: Current Medications Acetaminophen (Tylenol 325mg Tab) 650 mg PO Q6 PRN PRN Reason: Pain, Mild (1-3) Last Admin: 04/19/18 18:42 Dose: 650 mg Budesonide (Pulmicort Respules) 0.5 mg IH RQD [facility] Last Admin: 04/20/18 08:15 Dose: 0.5 mg Calcium Carbonate (Oscal) 500 mg PO DAILY [facility] Last Admin: 04/20/18 10:49 Dose: 500 mg Carvedilol (Coreg) 3.125 mg PO BID [facility] Last Admin: 04/20/18 10:49 Dose: 3.125 mg Docusate Sodium (Colace) 200 mg PO HS [facility] Last Admin: 04/19/18 21:40 Dose: 200 mg Ergocalciferol (Drisdol 50,000 Intl Units Cap) 1 cap PO QWK [facility] Ferrous Sulfate (Feosol) 325 mg PO BID [facility] Last Admin: 04/20/18 10:50 Dose: 325 mg Fluconazole (Diflucan) 200 mg PO DAILY [facility] Last Admin: 04/20/18 10:49 Dose: 200 mg Heparin Sodium (Porcine) (Heparin) 5,000 units SC Q8 [facility] Last Admin: 04/19/18 21:40 Dose: 5,000 units Hydromorphone HCl (Dilaudid) 1 mg IVP Q4H PRN PRN Reason: Pain, moderate (4-7) Vancomycin/Sodium Chloride (Vancomycin 1 Gm/Ns 200 Ml) 1 gm in 200 mls @ 133 mls/hr IVPB DAILY@1100 [facility] Stop: 04/24/18 11:01 Last Admin: 04/20/18 10:30 Dose: 133 mls/hr Ceftriaxone Sodium 2 gm/ (Sodium Chloride) 100 mls @ 100 mls/hr IVPB DAILY@0900 [facility] Last Admin: 04/20/18 09:30 Dose: 100 mls/hr Lactated Ringer's (Lactated Ringer's) 1,000 mls @ 75 mls/hr IV .[id number] [facility] Last Admin: 04/20/18 05:22 Dose: 75 mls/hr Losartan Potassium (Cozaar) 100 mg PO DAILY [facility] Last Admin: 04/20/18 10:50 Dose: 100 mg Magnesium Oxide (Mag-Ox) 400 mg PO QPM [facility] Last Admin: 04/19/18 18:41 Dose: 400 mg Mirtazapine (Remeron) 15 mg PO HS [facility] Last Admin: 04/19/18 21:39 Dose: 15 mg Oxycodone HCl (Oxycodone Immediate Release Tab) 10 mg PO Q4 PRN PRN Reason: Pain, moderate (4-7) Last Admin: 04/19/18 21:38 Dose: 10 mg Pantoprazole Sodium (Protonix Ec Tab) 40 mg PO DAILY [facility] Last Admin: 04/20/18 10:50 Dose: 40 mg Potassium Chloride (K-Dur 20 Meq Er Tab) 20 meq PO DAILY [facility] Last Admin: 04/20/18 10:50 Dose: 20 meq Rosuvastatin Calcium (Crestor) 5 mg PO HS [facility] Last Admin: 04/19/18 21:39 Dose: 5 mg Tiotropium [place] (Spiriva) 18 mcg IH [facility] - Labs Labs: 04/20/18 06:44 04/20/18 06:44 PT 13.9 SECONDS (9.7-12.2) H 04/19/18 06:23 INR 1.3 04/19/18 06:23 APTT 30 SECONDS (21-34) 04/19/18 06:23 - Constitutional Appears: Non-toxic, No Acute Distress - Head Exam Head Exam: ATRAUMATIC, NORMAL INSPECTION - Eye Exam Eye Exam: Normal appearance - Respiratory Exam Respiratory Exam: NORMAL BREATHING PATTERN. absent: Respiratory Distress - Cardiovascular Exam Cardiovascular Exam: +S1, +S2 - Extremities Exam Additional comments: Right leg dressing clean/dry/intact on right stump - Neurological Exam Neurological Exam: Alert, Awake - Psychiatric Exam Psychiatric exam: Normal Affect, Normal Mood - Skin Skin Exam: Dry, Normal Color, Warm Assessment and Plan - Assessment and Plan (Free Text) Assessment: 88yo F with PMHx of HTN, anemia, hypokalemia, COD, hyperlipidemia, dimentia, arthritis, DVT/PE on Eliquis with right TKA wound recurrent dehiscence s/p AKA POD#1 - Resume Eliquis - Continue IV abx - Leave dressing in place - Discussed plan with Dr. Srini Fay PGY-4
[2018-04-20] MEDS: Magnesium Oxide 400 mg Tab UD PO SCH (18:22)
[2018-04-21 07:24] LABS: BASO # 0.1 K/uL (0.0-0.2); BASO % 0.8 % (0.0-2.0); EOS % 0.5 % (0.0-4.0); HEMOGLOBIN 7.7 g/dL (11.0-16.0); LYMPH # 0.8 K/uL (1.0-4.3); LYMPH % 11.1 % (20.0-40.0); MEAN CELL VOLUME 87.4 fL (81.0-99.0); MEAN CORPUSCULAR HEMOGLOBIN 29.7 pg (27.0-31.0); MEAN PLATELET VOLUME 8.2 fL (7.2-11.7); MONO % 13.2 % (0.0-10.0); NEUT # 5.5 K/uL (1.8-7.0); NEUT % 74.4 % (50.0-75.0); NRBC % 0.1 % (0.0-2.0); RBC 2.58 Mil/uL (3.80-5.20); RED CELL DISTRIBUTION WIDTH 16.4 % (11.5-14.5); WHITE BLOOD COUNT 7.4 K/uL (4.8-10.8)
[2018-04-21 07:48] LABS: ALB/GLOB RATIO 0.7 (1.0-2.1); ALBUMIN 2.1 g/dL (3.5-5.0); ALT/SGPT 24 U/L (9-52); AST/SGOT 23 U/L (14-36); BLOOD UREA NITROGEN 11 mg/dL (7-17); CALCIUM 8.2 mg/dl (8.6-10.4); GFR NON-AFRICAN AMERICAN > 60
[2018-04-21] MEDS: Budesonide 0.5 mg/2 ml Inhal Susp UD IH SCH (08:05)
[2018-04-21] MEDS: cefTRIAXone 2 GM in Sodium Chloride 0.9% 100 ML IVPB SCH (09:59)
[2018-04-21] MEDS: Lactated Ringer's 1,000 ML IV SCH (10:07)
[2018-04-21] MEDS: Potassium Chloride 20 mEq ER Tab PO SCH (10:35)
[2018-04-21] MEDS: Pantoprazole 40 mg EC Tab PO SCH (10:36)
--- NOTE | 2018-04-21 11:05 | CP.PCM.PN ---
Subjective - Date & Time of Evaluation Date of Evaluation: 04/21/18 Time of Evaluation: 07:00 - Subjective Subjective: GENERAL SURGERY PROGRESS NOTE FOR DR. GARCIA Patient seen and examined at bedside. Pt reports some pain. ROS limited due to dementia. Objective - Vital Signs/Intake and Output Vital Signs (last 24 hours): Temp Pulse Resp BP Pulse Ox 97.5 F L 62 18 123/59 L 98 04/21/18 07:35 04/21/18 07:35 04/21/18 07:35 04/21/18 07:35 04/21/18 07:35 Intake and Output: 04/21/18 04/21/18 06:59 18:59 Intake Total 600 Output Total 500 Balance 100 - Medications Medications: Current Medications Acetaminophen (Tylenol 325mg Tab) 650 mg PO Q6 PRN PRN Reason: Pain, Mild (1-3) Last Admin: 04/19/18 18:42 Dose: 650 mg Apixaban (Eliquis) 2.5 mg PO BID [facility] Last Admin: 04/21/18 10:36 Dose: 2.5 mg Budesonide (Pulmicort Respules) 0.5 mg IH RQD [facility] Last Admin: 04/21/18 08:05 Dose: 0.5 mg Calcium Carbonate (Oscal) 500 mg PO DAILY [facility] Last Admin: 04/21/18 10:36 Dose: 500 mg Carvedilol (Coreg) 3.125 mg PO BID [facility] Last Admin: 04/21/18 10:36 Dose: 3.125 mg Docusate Sodium (Colace) 200 mg PO HS [facility] Last Admin: 04/20/18 21:02 Dose: 200 mg Ergocalciferol (Drisdol 50,000 Intl Units Cap) 1 cap PO QWK [facility] Ferrous Sulfate (Feosol) 325 mg PO BID [facility] Last Admin: 04/21/18 10:35 Dose: 325 mg Fluconazole (Diflucan) 200 mg PO DAILY [facility] Last Admin: 04/21/18 10:35 Dose: 200 mg Hydromorphone HCl (Dilaudid) 1 mg IVP Q4H PRN PRN Reason: Pain, moderate (4-7) Ceftriaxone Sodium 2 gm/ (Sodium Chloride) 100 mls @ 100 mls/hr IVPB DAILY@0900 [facility] Last Admin: 04/21/18 09:59 Dose: 100 mls/hr Lactated Ringer's (Lactated Ringer's) 1,000 mls @ 75 mls/hr IV .[id number] [facility] Last Admin: 04/21/18 10:07 Dose: 75 mls/hr Vancomycin HCl 500 mg/ Sodium (Chloride) 100 mls @ 100 mls/hr IVPB Q12 [facility]; Protocol Losartan Potassium (Cozaar) 100 mg PO DAILY [facility] Last Admin: 04/21/18 10:36 Dose: 100 mg Magnesium Oxide (Mag-Ox) 400 mg PO QPM [facility] Last Admin: 04/20/18 18:22 Dose: 400 mg Mirtazapine (Remeron) 15 mg PO HS [facility] Last Admin: 04/20/18 21:03 Dose: 15 mg Oxycodone HCl (Oxycodone Immediate Release Tab) 10 mg PO Q4 PRN PRN Reason: Pain, moderate (4-7) Last Admin: 04/19/18 21:38 Dose: 10 mg Pantoprazole Sodium (Protonix Ec Tab) 40 mg PO DAILY [facility] Last Admin: 04/21/18 10:36 Dose: 40 mg Potassium Chloride (K-Dur 20 Meq Er Tab) 20 meq PO DAILY [facility] Last Admin: 04/21/18 10:35 Dose: 20 meq Rosuvastatin Calcium (Crestor) 5 mg PO HS [facility] Last Admin: 04/20/18 21:03 Dose: 5 mg Tiotropium [place] (Spiriva) 18 mcg IH HS [facility] - Labs Labs: 04/21/18 07:10 04/21/18 07:10 PT 13.9 SECONDS (9.7-12.2) H 04/19/18 06:23 INR 1.3 04/19/18 06:23 APTT 30 SECONDS (21-34) 04/19/18 06:23 - Constitutional Appears: Non-toxic, No Acute Distress - Respiratory Exam Respiratory Exam: NORMAL BREATHING PATTERN. absent: Respiratory Distress - Cardiovascular Exam Cardiovascular Exam: +S1, +S2. absent: Tachycardia - GI/Abdominal Exam GI & Abdominal Exam: Soft. absent: Distended, Firm, Tenderness - Extremities Exam Additional comments: Right stump dressing clean/dry/intact - Neurological Exam Neurological Exam: Alert, Awake. 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 Hector (ID while pt at [facility]): recommends continuing IV Diflucan for 3 more days and then switching to PO Diflucan for 10 more days (due to previous blood cx growing Loida). Recommends continuing IV Rocephin and Vanco for 5 more days - Leave dressing in place - Physical therapy ordered - Discussed plan with Dr. Srini Fay PGY-4
[2018-04-21 12:12] VITALS: RESP 20
--- NOTE | 2018-04-21 13:31 | CP.PCM.PN ---
<Tushar Gold - Last Filed: 04/21/18 13:27> Subjective - Date & Time of Evaluation Date of Evaluation: 04/21/18 Time of Evaluation: 10:00 - Subjective Subjective: PGY-1 Medicine Progress Note for Dr. Morillo's service Patient seen and examined at bedside. Patient 12 point ROS limited secondary to patient clinical condition. As per nursing patient was agitated overnight and did not take her applesauce that had medications. Objective - Vital Signs/Intake and Output Vital Signs (last 24 hours): Temp Pulse Resp BP Pulse Ox 98.5 F 80 20 145/67 98 04/21/18 12:26 04/21/18 12:26 04/21/18 12:26 04/21/18 12:26 04/21/18 07:35 Intake and Output: 04/21/18 04/21/18 06:59 18:59 Intake Total 600 0 Output Total 500 Balance 100 0 - Medications Medications: Current Medications Acetaminophen (Tylenol 325mg Tab) 650 mg PO Q6 PRN PRN Reason: Pain, Mild (1-3) Last Admin: 04/21/18 13:03 Dose: 650 mg Apixaban (Eliquis) 2.5 mg PO BID [facility] Last Admin: 04/21/18 10:36 Dose: 2.5 mg Budesonide (Pulmicort Respules) 0.5 mg IH RQD [facility] Last Admin: 04/21/18 08:05 Dose: 0.5 mg Calcium Carbonate (Oscal) 500 mg PO DAILY [facility] Last Admin: 04/21/18 10:36 Dose: 500 mg Carvedilol (Coreg) 3.125 mg PO BID [facility] Last Admin: 04/21/18 10:36 Dose: 3.125 mg Docusate Sodium (Colace) 200 mg PO HS [facility] Last Admin: 04/20/18 21:02 Dose: 200 mg Ergocalciferol (Drisdol 50,000 Intl Units Cap) 1 cap PO QWK [facility] Ferrous Sulfate (Feosol) 325 mg PO BID [facility] Last Admin: 04/21/18 10:35 Dose: 325 mg Fluconazole (Diflucan) 200 mg PO DAILY [facility] Last Admin: 04/21/18 10:35 Dose: 200 mg Hydromorphone HCl (Dilaudid) 1 mg IVP Q4H PRN PRN Reason: Pain, moderate (4-7) Ceftriaxone Sodium 2 gm/ (Sodium Chloride) 100 mls @ 100 mls/hr IVPB DAILY@0900 [facility] Last Admin: 04/21/18 09:59 Dose: 100 mls/hr Lactated Ringer's (Lactated Ringer's) 1,000 mls @ 75 mls/hr IV .[id number] [facility] Last Admin: 04/21/18 10:07 Dose: 75 mls/hr Vancomycin HCl 500 mg/ Sodium (Chloride) 100 mls @ 100 mls/hr IVPB Q12 [facility]; Protocol Losartan Potassium (Cozaar) 100 mg PO DAILY [facility] Last Admin: 04/21/18 10:36 Dose: 100 mg Magnesium Oxide (Mag-Ox) 400 mg PO QPM [facility] Last Admin: 04/20/18 18:22 Dose: 400 mg Mirtazapine (Remeron) 15 mg PO HS [facility] Last Admin: 04/20/18 21:03 Dose: 15 mg Oxycodone HCl (Oxycodone Immediate Release Tab) 10 mg PO Q4 PRN PRN Reason: Pain, moderate (4-7) Last Admin: 04/19/18 21:38 Dose: 10 mg Pantoprazole Sodium (Protonix Ec Tab) 40 mg PO DAILY [facility] Last Admin: 04/21/18 10:36 Dose: 40 mg Potassium Chloride (K-Dur 20 Meq Er Tab) 20 meq PO DAILY [facility] Last Admin: 04/21/18 10:35 Dose: 20 meq Rosuvastatin Calcium (Crestor) 5 mg PO [facility] Last Admin: 04/20/18 21:03 Dose: 5 mg Tiotropium [place] (Spiriva) 18 mcg IH [facility] - Labs Labs: 04/21/18 07:10 04/21/18 07:10 PT 13.9 SECONDS (9.7-12.2) H 04/19/18 06:23 INR 1.3 04/19/18 06:23 APTT 30 SECONDS (21-34) 04/19/18 06:23 - Additional Findings Additional findings: - Constitutional Appears: Non-toxic, No Acute Distress, Confused - Head Exam Head Exam: ATRAUMATIC, NORMOCEPHALIC - ENT Exam ENT Exam: Mucous Membranes Moist - Respiratory Exam Respiratory Exam: NORMAL BREATHING PATTERN - Cardiovascular Exam Cardiovascular Exam: REGULAR RHYTHM, +S1, +S2 - GI/Abdominal Exam GI & Abdominal Exam: Normal Bowel Sounds, Soft. 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 Dr. Milligan is primary and has plans for AKA. Patient had AKA procedure on 04/19/18 and as per surgery patient can be restarted on anticoagulation. Of note in labs, patient had an acute drop in her hemoglobin. Patient was repleted with 1 unit of pRBCs Plan: Right knee wound dehiscence s/p multiple TKR revisions Dr. Milligan- Vascular Surgery- AKA on 04/19/2018; Patient on Heparin 5000 units; Dilaudid 1mg PRN and Oxycodone ER 10mg po q4h prn Wound Cx at [place] positive for Klebsiella Pneumo, Proteus Mirabilis Blood Cx at [place] positive for yeast species, Loida Glabrata ID at [place] consulted: Dr. Hector - started on Vanc, Rocephin, Diflucan. Rocephin 2g IVPB daily; Vanc 1g IV daily; Fluconazole 400mg IV daily HTN Coreg 3.125mg po bid Cozaar 100mg po daily Hyperlipidemia Crestor 5mg po HS Chronic Iron Def Anemia Feosol 325mg po bid Repeat CBC in AM Transfused 1 unit of pRBCs; chest xray pending; will use lasix if necessary COPD Pulmicort 0.5mg IH daily Spiriva 18mgg IH HS [facility] OsCal 500mg po daily Ergocalciferol 1 cap po qweekly Hx DVT/PE Eliquis 2.5mg po daily Constipation Docusate 200mg po HS Mg Oxide 400mg po qPM PPx DVT: Heparin 5000 units sc q8h, SCDs GI: Protonix 40mg po daily LRs @ 75mls/hr Disposition: Discharge planning as per surgery. Patient requires 3 days of IV diflucan prior to switching po Madaser Asif PGY-1 Medical Management discussed with Dr. Morillo <Dion Morillo - Last Filed: 04/21/18 15:02> Objective - Vital Signs/Intake and Output Vital Signs (last 24 hours): Temp Pulse Resp BP Pulse Ox 98.6 F 68 20 143/67 98 04/21/18 13:11 04/21/18 13:11 04/21/18 13:11 04/21/18 13:11 04/21/18 07:35 Intake and Output: 04/21/18 04/21/18 06:59 18:59 Intake Total 600 0 Output Total 500 Balance 100 0 - Medications Medications: Current Medications Acetaminophen (Tylenol 325mg Tab) 650 mg PO Q6 PRN PRN Reason: Pain, Mild (1-3) Last Admin: 04/21/18 13:03 Dose: 650 mg Apixaban (Eliquis) 2.5 mg PO BID [facility] Last Admin: 04/21/18 10:36 Dose: 2.5 mg Budesonide (Pulmicort Respules) 0.5 mg IH RQD [facility] Last Admin: 04/21/18 08:05 Dose: 0.5 mg Calcium Carbonate (Oscal) 500 mg PO DAILY [facility] Last Admin: 04/21/18 10:36 Dose: 500 mg Carvedilol (Coreg) 3.125 mg PO BID [facility] Last Admin: 04/21/18 10:36 Dose: 3.125 mg Docusate Sodium (Colace) 200 mg PO HS [facility] Last Admin: 04/20/18 21:02 Dose: 200 mg Ergocalciferol (Drisdol 50,000 Intl Units Cap) 1 cap PO QWK [facility] Ferrous Sulfate (Feosol) 325 mg PO BID [facility] Last Admin: 04/21/18 10:35 Dose: 325 mg Fluconazole (Diflucan) 200 mg PO DAILY [facility] Last Admin: 04/21/18 10:35 Dose: 200 mg Hydromorphone HCl (Dilaudid) 1 mg IVP Q4H PRN PRN Reason: Pain, moderate (4-7) Ceftriaxone Sodium 2 gm/ (Sodium Chloride) 100 mls @ 100 mls/hr IVPB DAILY@0900 [facility] Last Admin: 04/21/18 09:59 Dose: 100 mls/hr Lactated Ringer's (Lactated Ringer's) 1,000 mls @ 75 mls/hr IV .[id number] [facility] Last Admin: 04/21/18 10:07 Dose: 75 mls/hr Vancomycin HCl 500 mg/ Sodium (Chloride) 100 mls @ 100 mls/hr IVPB Q12 [facility]; Protocol Losartan Potassium (Cozaar) 100 mg PO DAILY [facility] Last Admin: 04/21/18 10:36 Dose: 100 mg Magnesium Oxide (Mag-Ox) 400 mg PO QPM [facility] Last Admin: 04/20/18 18:22 Dose: 400 mg Mirtazapine (Remeron) 15 mg PO HS [facility] Last Admin: 04/20/18 21:03 Dose: 15 mg Oxycodone HCl (Oxycodone Immediate Release Tab) 10 mg PO Q4 PRN PRN Reason: Pain, moderate (4-7) Last Admin: 04/19/18 21:38 Dose: 10 mg Pantoprazole Sodium (Protonix Ec Tab) 40 mg PO DAILY [facility] Last Admin: 04/21/18 10:36 Dose: 40 mg Potassium Chloride (K-Dur 20 Meq Er Tab) 20 meq PO DAILY [facility] Last Admin: 04/21/18 10:35 Dose: 20 meq Rosuvastatin Calcium (Crestor) 5 mg PO HS [facility] Last Admin: 04/20/18 21:03 Dose: 5 mg Tiotropium [place] (Spiriva) 18 mcg IH HS [facility] - Labs Labs: 04/21/18 07:10 04/21/18 07:10 PT 13.9 SECONDS (9.7-12.2) H 04/19/18 06:23 INR 1.3 04/19/18 06:23 APTT 30 SECONDS (21-34) 04/19/18 06:23 Attending/Attestation - Attestation I have personally seen and examined this patient.: Yes I have fully participated in the care of the patient.: Yes I have reviewed all pertinent clinical information, including history, physical exam and plan: Yes Notes (Text): 04/21/18 15:00 Medical consult: Patient was seen and examined by me. Agree with the above note by the resident The patient was not in any acute distress when I came and saw the patient the patient was - like before AAO x 1. They say she was very restless overnight. Hgb decreased to 7.7, I spoke with family member over the phone as well as at bedside, we will give one unit of PRBC The patient will need to get a portable after that this to assess for fluid overload - if so she may need IV lasix With reguards to pain controll - today when we saw her she reported it was controlled with the medications we have her on. Dion Morillo
--- NOTE | 2018-04-21 16:24 | RAD ---
Date of service: 04/21/2018 HISTORY: getting alot of volume; check for fluid overload COMPARISON: No prior. FINDINGS: LUNGS: Opacity at right lung base common nonspecific. Evaluation of left lower lung is limited by steep Nate oblique positioning of patient. PLEURA: Small right pleural effusion. No definite left pleural effusion. No pneumothorax. CARDIOVASCULAR: There is atherosclerotic calcification of the thoracic aorta. Normal cardiac size. No pulmonary vascular congestion. Right PICC catheter whose termination is not clearly within the superior vena cava on the basis of this limited oblique examination. OSSEOUS STRUCTURES: No significant abnormalities. VISUALIZED UPPER ABDOMEN: Normal. OTHER FINDINGS: None. IMPRESSION: Small right pleural effusion. Right basilar opacity common nonspecific. Limited examination. Right PICC catheter noted, which is not clearly within the superior vena cava on the basis of this limited examination.
[2018-04-21 17:31] VITALS: O2SAT 95
[2018-04-21] MEDS: Magnesium Oxide 400 mg Tab UD PO SCH (18:55)
--- NOTE | 2018-04-22 00:33 | CP.PCM.PN ---
<Norm Hightower - Last Filed: 04/22/18 00:32> Subjective - Date & Time of Evaluation Date of Evaluation: 04/22/18 Time of Evaluation: 00:32 - Subjective Subjective: Hospitalist Service Pt seen and examined at bedside, unable to obtain complete 12 poin ROS due to clinical status, as per nursing no acute events overnight Objective - Vital Signs/Intake and Output Vital Signs (last 24 hours): Temp Pulse Resp BP Pulse Ox 98.1 F 78 20 147/68 95 04/21/18 15:30 04/21/18 15:30 04/21/18 15:30 04/21/18 15:30 04/21/18 15:30 Intake and Output: 04/21/18 04/22/18 18:59 06:59 Intake Total 730 Output Total 200 150 Balance 530 -150 - Medications Medications: Current Medications Acetaminophen (Tylenol 325mg Tab) 650 mg PO Q6 PRN PRN Reason: Pain, Mild (1-3) Last Admin: 04/21/18 13:03 Dose: 650 mg Apixaban (Eliquis) 2.5 mg PO BID [facility] Last Admin: 04/21/18 18:55 Dose: 2.5 mg Budesonide (Pulmicort Respules) 0.5 mg IH RQD [facility] Last Admin: 04/21/18 08:05 Dose: 0.5 mg Calcium Carbonate (Oscal) 500 mg PO DAILY [facility] Last Admin: 04/21/18 10:36 Dose: 500 mg Carvedilol (Coreg) 3.125 mg PO BID [facility] Last Admin: 04/21/18 18:55 Dose: 3.125 mg Docusate Sodium (Colace) 200 mg PO HS [facility] Last Admin: 04/21/18 23:04 Dose: Not Given Ergocalciferol (Drisdol 50,000 Intl Units Cap) 1 cap PO QWK [facility] Ferrous Sulfate (Feosol) 325 mg PO BID [facility] Last Admin: 04/21/18 18:55 Dose: 325 mg Fluconazole (Diflucan) 200 mg PO DAILY [facility] Last Admin: 04/21/18 10:35 Dose: 200 mg Hydromorphone HCl (Dilaudid) 1 mg IVP Q4H PRN PRN Reason: Pain, moderate (4-7) Ceftriaxone Sodium 2 gm/ (Sodium Chloride) 100 mls @ 100 mls/hr IVPB DAILY@0900 [facility] Last Admin: 04/21/18 09:59 Dose: 100 mls/hr Lactated Ringer's (Lactated Ringer's) 1,000 mls @ 75 mls/hr IV .[id number] [facility] Last Admin: 04/21/18 10:07 Dose: 75 mls/hr Vancomycin HCl 500 mg/ Sodium (Chloride) 100 mls @ 100 mls/hr IVPB Q12 [facility]; Protocol Last Admin: 04/21/18 22:10 Dose: 100 mls/hr Losartan Potassium (Cozaar) 100 mg PO DAILY [facility] Last Admin: 04/21/18 10:36 Dose: 100 mg Magnesium Oxide (Mag-Ox) 400 mg PO QPM [facility] Last Admin: 04/21/18 18:55 Dose: 400 mg Mirtazapine (Remeron) 15 mg PO HS [facility] Last Admin: 04/21/18 23:04 Dose: Not Given Oxycodone HCl (Oxycodone Immediate Release Tab) 10 mg PO Q4 PRN PRN Reason: Pain, moderate (4-7) Last Admin: 04/19/18 21:38 Dose: 10 mg Pantoprazole Sodium (Protonix Ec Tab) 40 mg PO DAILY [facility] Last Admin: 04/21/18 10:36 Dose: 40 mg Potassium Chloride (K-Dur 20 Meq Er Tab) 20 meq PO DAILY [facility] Last Admin: 04/21/18 10:35 Dose: 20 meq Rosuvastatin Calcium (Crestor) 5 mg PO [facility] Last Admin: 04/21/18 23:04 Dose: Not Given Tiotropium [place] (Spiriva) 18 mcg IH [facility] Last Admin: 04/21/18 23:04 Dose: Not Given - Labs Labs: 04/21/18 07:10 04/21/18 07:10 PT 13.9 SECONDS (9.7-12.2) H 04/19/18 06:23 INR 1.3 04/19/18 06:23 APTT 30 SECONDS (21-34) 04/19/18 06:23 - Additional Findings Additional findings: - Constitutional Appears: Non-toxic, No Acute Distress, Confused - Head Exam Head Exam: ATRAUMATIC, NORMOCEPHALIC - ENT Exam ENT Exam: Mucous Membranes Moist - Respiratory Exam Respiratory Exam: NORMAL BREATHING PATTERN - Cardiovascular Exam Cardiovascular Exam: REGULAR RHYTHM, +S1, +S2 - GI/Abdominal Exam GI & Abdominal Exam: Normal Bowel Sounds, Soft. 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 Dr. Milligan is primary and has plans for AKA. Patient had AKA procedure on 04/19/18 and as per surgery patient can be restarted on anticoagulation. Of note in labs, patient had an acute drop in her hemoglobin. Patient was repleted with 1 unit of pRBCs Plan: Right knee wound dehiscence s/p multiple TKR revisions Dr. Milligan- Vascular Surgery- AKA on 04/19/2018; Patient on Heparin 5000 units; Dilaudid 1mg PRN and Oxycodone ER 10mg po q4h prn Wound Cx at [place] positive for Klebsiella Pneumo, Proteus Mirabilis Blood Cx at [place] positive for yeast species, Loida Glabrata ID at [place] consulted: Dr. Hector - started on Vanc, Rocephin, Diflucan. Rocephin 2g IVPB daily; Vanc 1g IV daily; Fluconazole 400mg IV daily HTN Coreg 3.125mg po bid Cozaar 100mg po daily Hyperlipidemia Crestor 5mg po HS Chronic Iron Def Anemia Feosol 325mg po bid Repeat CBC in AM Transfused 1 unit of pRBCs; chest xray pending; will use lasix if necessary COPD Pulmicort 0.5mg IH daily Spiriva 18mgg IH HS Osteoporosis OsCal 500mg po daily Ergocalciferol 1 cap po qweekly Hx DVT/PE Eliquis 2.5mg po daily Constipation Docusate 200mg po HS Mg Oxide 400mg po qPM PPx DVT: Heparin 5000 units sc q8h, SCDs GI: Protonix 40mg po daily LRs @ 75mls/hr Disposition: Discharge planning as per surgery. Patient requires 3 days of IV diflucan prior to switching po C Kyriakides PGY-1 Medical Management discussed with Dr. Morillo <Dion Morillo H - Last Filed: 04/22/18 13:03> Objective - Vital Signs/Intake and Output Vital Signs (last 24 hours): Temp Pulse Resp BP Pulse Ox 97.9 F 87 20 159/80 H 95 04/22/18 08:30 04/22/18 08:30 04/22/18 08:30 04/22/18 09:55 04/22/18 08:30 Intake and Output: 04/22/18 04/22/18 06:59 18:59 Output Total 150 Balance -150 - Medications Medications: Current Medications Acetaminophen (Tylenol 325mg Tab) 650 mg PO Q6 PRN PRN Reason: Pain, Mild (1-3) Last Admin: 04/21/18 13:03 Dose: 650 mg Apixaban (Eliquis) 2.5 mg PO BID [facility] Last Admin: 04/22/18 09:04 Dose: 2.5 mg Budesonide (Pulmicort Respules) 0.5 mg IH RQD [facility] Last Admin: 04/22/18 08:35 Dose: 0.5 mg Calcium Carbonate (Oscal) 500 mg PO DAILY [facility] Last Admin: 04/22/18 09:04 Dose: 500 mg Carvedilol (Coreg) 3.125 mg PO BID [facility] Last Admin: 04/22/18 09:04 Dose: 3.125 mg Docusate Sodium (Colace) 200 mg PO HS [facility] Last Admin: 04/21/18 23:04 Dose: Not Given Ergocalciferol (Drisdol 50,000 Intl Units Cap) 1 cap PO QWK [facility] Ferrous Sulfate (Feosol) 325 mg PO BID [facility] Last Admin: 04/22/18 09:04 Dose: 325 mg Fluconazole (Diflucan) 200 mg PO DAILY [facility] Last Admin: 04/22/18 09:04 Dose: 200 mg Hydromorphone HCl (Dilaudid) 1 mg IVP Q4H PRN PRN Reason: Pain, moderate (4-7) Ceftriaxone Sodium 2 gm/ (Sodium Chloride) 100 mls @ 100 mls/hr IVPB DAILY@0900 [facility] Last Admin: 04/22/18 09:05 Dose: 100 mls/hr Lactated Ringer's (Lactated Ringer's) 1,000 mls @ 75 mls/hr IV .[id number] [facility] Last Admin: 04/22/18 02:12 Dose: 75 mls/hr Vancomycin HCl 500 mg/ Sodium (Chloride) 100 mls @ 100 mls/hr IVPB Q12 [facility]; Protocol Last Admin: 04/22/18 09:54 Dose: 100 mls/hr Losartan Potassium (Cozaar) 100 mg PO DAILY [facility] Last Admin: 04/22/18 10:01 Dose: 100 mg Magnesium Oxide (Mag-Ox) 400 mg PO QPM [facility] Last Admin: 04/21/18 18:55 Dose: 400 mg Mirtazapine (Remeron) 15 mg PO HS [facility] Last Admin: 04/21/18 23:04 Dose: Not Given Oxycodone HCl (Oxycodone Immediate Release Tab) 10 mg PO Q4 PRN PRN Reason: Pain, moderate (4-7) Last Admin: 04/19/18 21:38 Dose: 10 mg Pantoprazole Sodium (Protonix Ec Tab) 40 mg PO DAILY [facility] Last Admin: 04/22/18 09:04 Dose: 40 mg Potassium Chloride (K-Dur 20 Meq Er Tab) 20 meq PO DAILY [facility] Last Admin: 04/22/18 09:04 Dose: 20 meq Rosuvastatin Calcium (Crestor) 5 mg PO [facility] Last Admin: 04/21/18 23:04 Dose: Not Given Tiotropium [place] (Spiriva) 18 mcg IH [facility] Last Admin: 04/21/18 23:04 Dose: Not Given - Labs Labs: 04/22/18 07:43 04/22/18 07:43 PT 13.9 SECONDS (9.7-12.2) H 04/19/18 06:23 INR 1.3 04/19/18 06:23 APTT 30 SECONDS (21-34) 04/19/18 06:23 Attending/Attestation - Attestation I have personally seen and examined this patient.: Yes I have fully participated in the care of the patient.: Yes I have reviewed all pertinent clinical information, including history, physical exam and plan: Yes Notes (Text): 04/22/18 12:58 Medical attending: Patient was seen and examined by me this morning with the medical residents and discussed with surgery team. The patient was more awake than previous - she still does not remember me. This appears to be her baseline. Pleasant affect. She denied chest pain, denied shortness of breath, and denied pain at the amputation site. She had one PRBC yesterday. Lasix x 1 dose of 20. She looks quite well at this time. Surgery is trying to move patient back to [facility] Dion Morillo
[2018-04-22] MEDS: Lactated Ringer's 1,000 ML IV SCH (02:12)
[2018-04-22 07:56] LABS: BASO % 0.7 % (0.0-2.0); EOS # 0.1 K/uL (0.0-0.7); EOS % 2.1 % (0.0-4.0); HEMOGLOBIN 9.6 g/dL (11.0-16.0); LYMPH # 0.8 K/uL (1.0-4.3); LYMPH % 11.8 % (20.0-40.0); MEAN CELL VOLUME 86.6 fL (81.0-99.0); MEAN CORPUSCULAR HEMOGLOBIN 30.1 pg (27.0-31.0); MEAN CORPUSCULAR HGB CONC 34.8 g/dL (33.0-37.0); MEAN PLATELET VOLUME 8.5 fL (7.2-11.7); MONO # 0.7 K/uL (0.0-0.8); MONO % 11.4 % (0.0-10.0); NEUT # 4.8 K/uL (1.8-7.0); NRBC % 0.1 % (0.0-2.0); RBC 3.18 Mil/uL (3.80-5.20); RED CELL DISTRIBUTION WIDTH 15.4 % (11.5-14.5); WHITE BLOOD COUNT 6.5 K/uL (4.8-10.8)
[2018-04-22 08:23] LABS: ALB/GLOB RATIO 0.7 (1.0-2.1); ALBUMIN 2.2 g/dL (3.5-5.0); ALT/SGPT 18 U/L (9-52); AST/SGOT 23 U/L (14-36); BLOOD UREA NITROGEN 10 mg/dL (7-17); CALCIUM 8.3 mg/dl (8.6-10.4); GFR NON-AFRICAN AMERICAN > 60
[2018-04-22] MEDS: Budesonide 0.5 mg/2 ml Inhal Susp UD IH SCH (08:35)
[2018-04-22] MEDS: Pantoprazole 40 mg EC Tab PO SCH (09:04)
[2018-04-22] MEDS: Potassium Chloride 20 mEq ER Tab PO SCH (09:04)
[2018-04-22] MEDS: cefTRIAXone 2 GM in Sodium Chloride 0.9% 100 ML IVPB SCH (09:05)
[2018-04-22 09:55] VITALS: BP 159/80
--- NOTE | 2018-04-22 10:21 | RAD ---
Chest x-ray single frontal view HISTORY: [place]. COMPARISON: 04/21/2018 FINDINGS: Lines and tubes in stable position. Moderate to severe venous congestion. Prominent airspace consolidative changes in the mid to lower lung zones with moderate bilateral pleural effusions. Suggestion of a hiatal hernia. Atherosclerotic calcification at the aortic knob. Cardiomegaly. Lucency over the midline trachea may represent prior tracheostomy site Biapical pleural thickening. Degenerative changes in the spine and shoulders. Impression: Lines and tubes in stable position. Moderate to severe venous congestion. Prominent airspace consolidative changes in the mid to lower lung zones with moderate bilateral pleural effusions. Suggestion of a hiatal hernia. Atherosclerotic calcification at the aortic knob. Cardiomegaly. Lucency over the midline trachea may represent prior tracheostomy site Biapical pleural thickening.
[2018-04-22 10:23] VITALS: PULSE 87; TEMP 97.9
--- NOTE | 2018-04-22 10:58 | CP.PCM.DIS ---
Provider - Provider Date of Admission: 04/18/18 20:39 Attending physician: Owen Milligan Jr, MD Consults: 04/18/18 23:17 Hospitalist Consult Routine Comment: Consulting Provider: Veto Kim Consulting Physician: Veto Kim Reason for Consult: medical management 04/21/18 06:19 Case Management Referral Routine Comment: Likely need MERY Physician Instructions: Reason For Exam: Reason for Referral: Discharge Planning Time Spent in preparation of Discharge (in minutes): 30 Diagnosis - Discharge Diagnosis (1) Joint prosthesis infection or inflammation Status: Resolved Priority: High (2) Above knee amputation of right lower extremity Status: Acute Priority: High (3) Altered mental status Status: Chronic Priority: Low (4) Dementia in Alzheimer's disease with delirium Status: Chronic Priority: Low Hospital Course - Lab Results Lab Results: Most Recent Lab Values WBC 6.5 K/uL (4.8-10.8) 04/22/18 07:43 RBC 3.18 Mil/uL (3.80-5.20) L 04/22/18 07:43 Hgb 9.6 g/dL (11.0-16.0) L 04/22/18 07:43 Hct 27.5 % (34.0-47.0) L 04/22/18 07:43 MCV 86.6 fL (81.0-99.0) 04/22/18 07:43 MCH 30.1 pg (27.0-31.0) 04/22/18 07:43 MCHC 34.8 g/dL (33.0-37.0) 04/22/18 07:43 RDW 15.4 % (11.5-14.5) H 04/22/18 07:43 Plt Count 209 K/uL (130-400) 04/22/18 07:43 MPV 8.5 fL (7.2-11.7) 04/22/18 07:43 Neut % (Auto) 74.0 % (50.0-75.0) 04/22/18 07:43 Lymph % (Auto) 11.8 % (20.0-40.0) L 04/22/18 07:43 [facility] % (Auto) 11.4 % (0.0-10.0) H 04/22/18 07:43 Eos % (Auto) 2.1 % (0.0-4.0) 04/22/18 07:43 Baso % (Auto) 0.7 % (0.0-2.0) 04/22/18 07:43 Neut # (Auto) 4.8 K/uL (1.8-7.0) 04/22/18 07:43 Lymph # (Auto) 0.8 K/uL (1.0-4.3) L 04/22/18 07:43 [facility] # (Auto) 0.7 K/uL (0.0-0.8) 04/22/18 07:43 Eos # (Auto) 0.1 K/uL (0.0-0.7) 04/22/18 07:43 Baso # (Auto) 0.0 K/uL (0.0-0.2) 04/22/18 07:43 Neutrophils % (Manual) 82 % (50-75) H 04/20/18 06:44 Lymphocytes % (Manual) 12 % (20-40) L 04/20/18 06:44 Monocytes % (Manual) 6 % (0-10) 04/20/18 06:44 Platelet Estimate Normal (NORMAL) 04/20/18 06:44 Hypochromasia (manual) Slight 04/20/18 06:44 Poikilocytosis (manual Slight 04/20/18 06:44 Anisocytosis (manual) Slight 04/20/18 06:44 Tear Drop Cells Slight 04/20/18 06:44 Ovalocytes Slight 04/20/18 06:44 PT 13.9 SECONDS (9.7-12.2) H 04/19/18 06:23 INR 1.3 04/19/18 06:23 APTT 30 SECONDS (21-34) 04/19/18 06:23 Sodium 139 mmol/L (132-148) 04/22/18 07:43 Potassium 3.4 mmol/L (3.6-5.2) L 04/22/18 07:43 Chloride 103 mmol/L (98-107) 04/22/18 07:43 Carbon Dioxide 28 mmol/L (22-30) 04/22/18 07:43 Anion Gap 11 (10-20) 04/22/18 07:43 BUN 10 mg/dL (7-17) 04/22/18 07:43 Creatinine 0.6 mg/dL (0.7-1.2) L 04/22/18 07:43 Est GFR ( Amer) > 60 04/22/18 07:43 Est GFR (Non-Af Amer) > 60 04/22/18 07:43 Random Glucose 93 mg/dL (65-105) 04/22/18 07:43 Calcium 8.3 mg/dl (8.6-10.4) L 04/22/18 07:43 Phosphorus 2.9 mg/dL (2.5-4.5) 04/22/18 07:43 Magnesium 1.7 mg/dL (1.6-2.3) 04/22/18 07:43 Total Bilirubin 0.5 mg/dL (0.2-1.3) 04/22/18 07:43 AST 23 U/L (14-36) 04/22/18 07:43 ALT 18 U/L (9-52) 04/22/18 07:43 Alkaline Phosphatase 68 U/L (38-126) 04/22/18 07:43 Total Protein 5.3 g/dL (6.3-8.3) L 04/22/18 07:43 Albumin 2.2 g/dL (3.5-5.0) L 04/22/18 07:43 Globulin 3.1 gm/dL (2.2-3.9) 04/22/18 07:43 Albumin/Globulin Ratio 0.7 (1.0-2.1) L 04/22/18 07:43 Blood Type B POSITIVE 04/19/18 06:23 Antibody Screen Negative 04/19/18 06:23 - Hospital Course Hospital Course: 88yo F with PMHx of HTN, anemia, hypokalemia, COPD, hyperlipidemia, dimentia, arthritis, DVT/PE on Eliquis presents to [facility] as a transfer from [facility] for AKA with Dr. Milligan tomorrow. Pt has been wheel chair bound for several years and lives in a snf. Most of history obtained from patient's daughter at bedside. Patient had a bilateral knee replacement in 2013. Per the daughter, the pt fell on her knees while getting a shower at the snf and had to have several revisions of the knee replacements. (12/03/17, 12/08/17, attempt at closed reduction 02/01/18, open reduction TKA dislocation, revision TKA 02/09/18). On 04/04/18, she returned to [facility] ER with right knee wound dehiscence. On 04/06/18 she went back to the OR for wound dehiscence s/p revision of right TKR. A patellectomy was done with reconstruction of patella tendon. The wound was irrigated and debridement done. Wound was closed primarily and wound vac was applied. Pt was discharged back to snf. On 04/14/18, she presented back to [facility] ED with right TKA wound recurrent dehiscence. Dr. Hernandez discussed with patient's daughter and son and recommended AKA due to concern that perfusion in lower extremity would not support flap coverage and multiple plastic surgery procedures. Family in agreement for AKA. Pt transferred to [facility] for AKA which was done on 04/19. She has done well post op and is cleared for discharge back to [facility]. Discharge Exam - Head Exam Head Exam: ATRAUMATIC, NORMAL INSPECTION - Eye Exam Eye Exam: EOMI. absent: Scleral icterus - ENT Exam ENT Exam: Mucous Membranes Moist, Normal Oropharynx - Respiratory Exam Respiratory Exam: NORMAL BREATHING PATTERN. absent: Accessory Muscle Use, Respiratory Distress - Cardiovascular Exam Cardiovascular Exam: RRR, +S1, +S2 - GI/Abdominal Exam GI & Abdominal Exam: Soft. absent: Distended, Tenderness - Extremities Exam Extremities exam: pedal pulses present (on L) Additional comments: R AKA dressing C/D/I. no TTP - Neurological Exam Neurological exam: Alert, Altered (at her baseline) - Skin Skin Exam: Dry, Warm Discharge Plan - Discharge Medications Prescriptions: Apixaban [Eliquis] 2.5 mg PO BID #60 tab cefTRIAXone [Rocephin] 2 gm IVPB DAILY@0900 3 Days vial Fluconazole [Diflucan] 200 mg PO DAILY 10 Days #10 tab Fluconazole IV 200mg/100 ml NS [Diflucan IV 200 mg/100 ML NS] 200 mg IV DAILY #1 bag Vancomycin [Vancomycin Inj] 500 mg IVPB Q12 3 Days #7 vial - Follow Up Plan Condition: GOOD Disposition: OTHER INSTITUTION Instructions: Altered Mental Status (GEN) Additional Instructions: Can follow up with Dr. Milligan in 2 weeks for stump evaluation and possible suture/staple removal. Keep dressing in place unless it becomes saturated/wet. Dr. Hector (ID while pt at [facility]): recommends continuing IV Diflucan for 3 more days and then switching to PO Diflucan for 10 more days (due to previous blood cx growing Loida). Recommends continuing IV Rocephin and Vanco for 5 more days
[2018-04-25] MEDS ORDERED: Ergocalciferol 50,000 Intl Units Cap PO SCH (10:00)
== END 2018-04-22 16:03 | DRG 908 ==
LOC: C.6T 20:39
PROVIDERS: ADMIT Surgery Vascular Surgery; ATTEND Surgery Vascular Surgery
PROC: 0Y6C0Z3 Detachment at Right Upper Leg, Low, Open Approach (ICD-10-PCS; principal; 2018-04-19 10:00)
DX: T81.31XA Disruption of external operation (surgical) wound, not elsewhere classified, initial encounter (principal); T84.53XA Infection and inflammatory reaction due to internal right knee prosthesis, initial encounter; F05 Delirium due to known physiological condition; I70.261 Atherosclerosis of native arteries of extremities with gangrene, right leg; T84.092A Other mechanical complication of internal right knee prosthesis, initial encounter; Y79.2 Prosthetic and other implants, materials and accessory orthopedic devices associated with adverse incidents; Y83.1 Surgical operation with implant of artificial internal device as the cause of abnormal reaction of the patient, or of later complication, without mention of misadventure at the time of the procedure; E78.00 Pure hypercholesterolemia, unspecified; E78.5 Hyperlipidemia, unspecified; F02.80 Dementia in other diseases classified elsewhere, unspecified severity, without behavioral disturbance, psychotic disturbance, mood disturbance, and anxiety; G30.9 Alzheimer's disease, unspecified; I10 Essential (primary) hypertension; J44.9 Chronic obstructive pulmonary disease, unspecified; K21.9 Gastro-esophageal reflux disease without esophagitis; Z86.711 Personal history of pulmonary embolism; Z86.718 Personal history of other venous thrombosis and embolism; Z99.3 Dependence on wheelchair; Z82.3 Family history of stroke; Y79.3 Surgical instruments, materials and orthopedic devices (including sutures) associated with adverse incidents; Z80.3 Family history of malignant neoplasm of breast